=== PATIENT | female | born 1960 | race African-American/Black ===

== ENCOUNTER 2017-04-16 03:30 | Emergency (ER) | payer BC ==
[~2017-04-16] VITALS: Ht 160 cm; Wt 128.0 kg
[2017-04-16 03:32] VITALS: BP 144/79; PULSE 92; RESP 20; TEMP 100.8; O2SAT 97
[2017-04-16] MEDS ORDERED: IBUPROFEN 600 MG TAB PO ONE (03:45)
--- NOTE | 2017-04-16 03:45 | PD ---
HPI Chief Complaint: Cold / Flu Symptoms Time Seen by Provider: 03:35 Travel History International Travel<30 days: No Contact w/Intl Traveler<30days: No Traveled to known affect area: No History of Present Illness HPI 56-year-old female presents for evaluation of cough, congestion, fevers. Symptoms started 2 days ago. The cough is productive with no sputum production. She reports that her is developing similar symptoms. She denies chest pain, nausea or vomiting, abdominal pain, diarrhea, dysuria, flank pain, rash, recent travel. She has no other complaints at this time. [facility] Past Medical History Medical History: Denies Significant Hx Diminished Hearing: No Immunizations Current: Yes Ectopic : Yes (X2) Social History Alcohol Use: No Tobacco Use: Yes Substance Use: No Allergies-Medications (Allergen,Severity, Reaction): Coded Allergies: No Known Allergies (Verified Adverse Reaction, Unknown, 04/16/17) Reported Meds & Prescriptions Reported Meds & Active Scripts Active Tessalon Perles (Benzonatate) 100 Mg Cap 200 Mg PO TID PRN Review of Systems Except as stated in HPI: all other systems reviewed are Neg Physical Exam Narrative GENERAL: Well-developed well-nourished female in no acute distress SKIN: Warm and dry. HEAD: Atraumatic. Normocephalic. EYES: Pupils equal and round. No scleral icterus. No injection or drainage. ENT: No nasal bleeding or discharge. Mucous membranes pink and moist. NECK: Trachea midline. No JVD. CARDIOVASCULAR: Regular rate and rhythm. No murmur appreciated. RESPIRATORY: No accessory muscle use. Clear to auscultation. Breath sounds equal bilaterally. GASTROINTESTINAL: Abdomen soft, non-tender, nondistended. Hepatic and splenic margins not palpable. MUSCULOSKELETAL: No obvious deformities. No clubbing. No cyanosis. No edema. NEUROLOGICAL: Awake and alert. No obvious cranial nerve deficits. Motor grossly within normal limits. Normal speech. PSYCHIATRIC: Appropriate mood and affect; insight and judgment normal. Data Data Last Documented VS Vital Signs Date Time Temp Pulse Resp B/P (MAP) Pulse Ox O2 Delivery O2 Flow Rate FiO2 04/16/17 04:39 99.7 04/16/17 03:32 92 20 97 Room Air Orders Orders Chest, Single Ap (04/16/17 ) Influenzae A/B Antigen (04/16/17 03:42) Ibuprofen (Motrin) (04/16/17 03:45) Ed Discharge Order (04/16/17 05:17) [facility] Medical Decision Making Medical Screen Exam Complete: Yes Emergency Medical Condition: Yes Medical Record Reviewed: Yes Differential Diagnosis Influenza, pneumonia, bronchitis, otitis media Narrative Course 56-year-old female with 2 days of low-grade fever, cough, congestion. She appears well. She does have a low-grade fever. Plan is for chest x-ray and influenza antigen. She was given ibuprofen. Chest x-ray Is negative. Ibuprofen helped with her symptoms. Surprisingly her Influenza antigen is negative as her symptoms are most consistent with influenza. I don't suspect a bacterial process. Recommended supportive care, fluids, antipyretics, cough suppressants. She is being discharged with Tessalon. Diagnosis Primary Impression: Upper respiratory infection Departure Forms: Tests/Procedures, Work Release Enter return to work date: Apr 19, 2017 Additional Instructions: Stay well-hydrated and well-nourished. Take Tylenol and Motrin for fever. Tessalon for cough. Follow up with primary care as needed and return for any emergent medical conditions. Med/Other Pt SpecificInfo: Prescription(s) given Scripts Benzonatate (Tessalon Perles) 100 Mg Cap 200 MG PO TID Y for COUGH, #30 CAP 0 Refills Prov: Tg Weathers MD 04/16/17 Disposition: 01 DISCHARGE HOME Condition: Stable Moy Arnold Apr 16, 2017 03:45
--- NOTE | 2017-04-16 04:04 | RADRPT ---
EXAM DATE/TIME: 04/16/2017 03:52 [place] COMPARISON: No previous studies available for comparison. INDICATIONS : Cough. MEDICAL HISTORY : None. SURGICAL HISTORY : None. ENCOUNTER: Initial ACUITY: 2 days PAIN SCORE: 7/10 LOCATION: Left chest FINDINGS: Single AP view of the chest. The lungs are clear. Cardiomediastinal silhouette within normal limits. No evidence of pleural effusion or pneumothorax. CONCLUSION: No acute cardiopulmonary disease identified. Cory Canada MD on April 16, 2017 at 4:02 Board Certified Radiologist. This report was verified electronically.
[2017-04-16 04:39] VITALS: TEMP 99.7
[2017-04-16] MEDS ORDERED: BENZ100 PO (05:19)
== END 2017-04-16 05:30 | disposition home or self-care (01) ==
LOC: NEPD 03:30
DX: J06.9 Acute upper respiratory infection, unspecified (principal); Z72.0 Tobacco use
CPT/HCPCS: 71010; 87804; 99283

== ENCOUNTER 2018-05-03 07:05 | Inpatient (IN) ==
[2018-05-03] MEDS ORDERED: Sod Chloride 0.9% Inj 1,000 ML IV.SIG ONE (08:35)
[2018-05-03] MEDS ORDERED: Morphine Sulfate Inj 8 MG/ML Vial IV.PUSH ONE (08:35)
[2018-05-03] MEDS ORDERED: Aluminum/Magnesium/Simethacone Susp 30 ML UDC PO ONE (08:35)
--- NOTE | 2018-05-03 08:44 | ED ---
HPI General Chief complaint: Abdominal Pain Stated complaint: abd pain Time Seen by Provider: 05/03/18 08:20 History of Present Illness HPI narrative: Patient 57-year-old female presents emergency department for evaluation of epigastric abdominal pain radiating down to her back. States pain is been going on for past couple months but got worse over the past 2-3 days. Associated with some nausea without vomiting no diarrhea no constipation no dysuria. Worsened with spicy or fatty foods. Her only surgery in the past is an ectopic . States the pain has become severe, location as above, contacts above, associated signs symptoms as above. Related Data Home Medications Medication Instructions Recorded Confirmed No Known Home Medications 05/03/18 05/03/18 Allergies Allergy/AdvReac Type Severity Reaction Status Date / Time No Known Allergies Allergy Verified 05/03/18 07:10 Review of Systems ROS: all other systems reviewed are negative ON LICENSE OF [facility] Medical History Medical History History of ectopic (Acute) Patient denies medical problems (Acute) Surgical History Surgical History No history of previous surgery (Acute) Family History Family History Other Diabetes mellitus Social History Social History Substance History: No History of Abuse Second Hand Smoke Exposure: Yes Smoking Status: Current every day smoker Tobacco Type: Cigarettes How Often Do You Have a Drink Containing Alcohol: Never Recent Travel in [facility] within the Last 8 Weeks: No Recent Out of Country Travel within the Last 8 Weeks: No Immunization History Tetanus Immunization: Unsure Exam Narrative Exam Narrative: GENERAL: Well-developed well-nourished appears mildly uncomfortable. Obese. SKIN: Focused skin assessment warm/dry. HEAD: Atraumatic. Normocephalic. EYES: Pupils equal and round. No scleral icterus. No injection or drainage. ENT: No nasal bleeding or discharge. Mucous membranes pink and moist. NECK: Trachea midline. No JVD. CARDIOVASCULAR: Regular rate and rhythm. No murmur appreciated. RESPIRATORY: No accessory muscle use. Clear to auscultation. Breath sounds equal bilaterally. GASTROINTESTINAL: Abdomen soft, moderately tender in the epigastric region. Dewey sign negative. Psoas and obturator signs negative, no CVA tenderness per , nondistended. Hepatic and splenic margins not palpable. MUSCULOSKELETAL: No obvious deformities. No clubbing. No cyanosis. No edema. NEUROLOGICAL: Awake and alert. No obvious cranial nerve deficits. Motor grossly within normal limits. Normal speech. PSYCHIATRIC: Appropriate mood and affect; insight and judgment normal. Course Initial Documented Vital Signs Temperature 98.1 F 05/03/18 07:08 Pulse Rate 72 05/03/18 07:08 Respiratory Rate 20 05/03/18 07:08 Blood Pressure 156/92 H 05/03/18 07:08 Pulse Oximetry 99 05/03/18 07:08 Last Documented Vital Signs Temperature 98.1 F 05/03/18 07:08 Pulse Rate 74 05/03/18 12:06 Respiratory Rate 5 L 05/03/18 12:05 Blood Pressure 154/70 H 05/03/18 12:06 Pulse Oximetry 99 05/03/18 08:28 Medical Decision Making MDM Narrative Medical decision making narrative: Patient room in the emerge department, leading differential diagnosis considerations would be for cholecystitis or pancreatitis. Patient's lipase is minimally elevated 500, CT scan of the abdomen does not show acute cholecystitis but does show some inflammation of the pancreas. Patient does have multiple gallstones no obvious dilation of the biliary ductal system but concern would certainly be for biliary pancreatitis. Patient feeling better after morphine, discussed results with her as well as with hospitalist service for admission. Medical Screen Exam Complete: Yes Emergency Medical Condition: Yes Lab Data Result diagrams: 05/03/18 08:45 05/03/18 08:45 Lab Results 05/03/18 05/03/18 05/03/18 Range/Units 08:22 08:45 08:45 WBC 9.1 (4.0-11.0) th/mm3 RBC 4.41 (4.00-5.30) mil/mm3 Hgb 13.7 (11.6-15.3) gm/dL Hct 41.0 (35.0-46.0) % MCV 92.9 (80.0-100.0) fL MCH 31.1 (27.0-34.0) pg MCHC 33.4 (32.0-36.0) % RDW 13.5 (11.6-17.2) % Plt Count 179 (150-450) th/mm3 MPV 10.0 (7.0-11.0) fL Neut % (Auto) 52.4 (16.0-70.0) % Lymph % (Auto) 34.8 (9.0-44.0) % Archer % (Auto) 9.9 H (0.0-8.0) % Eos % (Auto) 1.9 (0.0-4.0) % Baso % (Auto) 1.0 (0.0-2.0) % Neut # (Auto) 4.8 (1.8-7.7) th/mm3 Lymph # (Auto) 3.2 (1.0-4.8) th/mm3 Archer # (Auto) 0.9 (0.0-0.9) th/mm3 Eos # (Auto) 0.2 (0.0-0.4) th/mm3 Baso # (Auto) 0.1 (0.0-0.2) th/mm3 WBC Differential . Differential Comment Auto diff final Sodium 136 (136-145) meq/L Potassium 4.1 (3.5-5.1) meq/L Chloride 104 (98-107) meq/L Carbon Dioxide 24.1 (21.0-32.0) meq/L Anion Gap 8 (5-15) meq/L BUN 10 (7-18) mg/dL Creatinine 0.68 (0.50-1.00) mg/dL Estimated GFR Greater than 89 (>89) mL/min Random Glucose 117 H (74-106) mg/dL Calcium 10.2 H (8.5-10.1) mg/dL Magnesium 2.1 (1.5-2.5) mg/dL Total Bilirubin 0.2 (0.2-1.0) mg/dL AST 19 (15-37) U/L ALT 23 (10-53) U/L Alkaline Phosphatase 99 (45-117) U/L Troponin I Less than 0.02 L (0.02-0.05) ng/mL Total Protein 8.3 H (6.4-8.2) g/dL Albumin 3.9 (3.4-5.0) g/dL Lipase 581 H (73-393) U/L Urine Color Yellow (Yellw/Straw) Urine Clarity Hazy H (Clear) Urine pH 5.0 (5.0-8.5) Ur Specific [place] 1.026 (1.002-1.035) Urine Protein Negative (Neg-Trace) mg/dL Urine Glucose (UA) Negative (Negative) mg/dL Urine Ketones Trace H (Negative) mg/dL Urine Occult Blood Negative (Negative) Urine Nitrate Negative (Negative) Urine Bilirubin Negative (Negative) Urine Urobilinogen 2.0 H (Less than 2) mg/dL Ur Leukocyte Esterase Negative (Negative) Urine RBC Less than 1 (0-3) /hpf Urine WBC 4 (0-5) /hpf Ur Squamous Epith Cells 4 (0-5) /hpf Calcium Oxalate Crystal Moderate H (None) /hpf Urine Bacteria Occasional H (None) /hpf Urine Mucus Few H (Occasional) /lpf Micro UA Comment Culture not ind Ur Microscopic Review Not Reportable Urine Culture Comments Culture not ind 05/03/18 Range/Units 08:45 WBC (4.0-11.0) th/mm3 RBC (4.00-5.30) mil/mm3 Hgb (11.6-15.3) gm/dL Hct (35.0-46.0) % MCV (80.0-100.0) fL MCH (27.0-34.0) pg MCHC (32.0-36.0) % RDW (11.6-17.2) % Plt Count (150-450) th/mm3 MPV (7.0-11.0) fL Neut % (Auto) (16.0-70.0) % Lymph % (Auto) (9.0-44.0) % Archer % (Auto) (0.0-8.0) % Eos % (Auto) (0.0-4.0) % Baso % (Auto) (0.0-2.0) % Neut # (Auto) (1.8-7.7) th/mm3 Lymph # (Auto) (1.0-4.8) th/mm3 Archer # (Auto) (0.0-0.9) th/mm3 Eos # (Auto) (0.0-0.4) th/mm3 Baso # (Auto) (0.0-0.2) th/mm3 WBC Differential Differential Comment Sodium (136-145) meq/L Potassium (3.5-5.1) meq/L Chloride (98-107) meq/L Carbon Dioxide (21.0-32.0) meq/L Anion Gap (5-15) meq/L BUN (7-18) mg/dL Creatinine (0.50-1.00) mg/dL Estimated GFR (>89) mL/min Random Glucose (74-106) mg/dL Calcium (8.5-10.1) mg/dL Magnesium (1.5-2.5) mg/dL Total Bilirubin (0.2-1.0) mg/dL AST (15-37) U/L ALT (10-53) U/L Alkaline Phosphatase (45-117) U/L Troponin I Cancelled (0.02-0.05) ng/mL Total Protein (6.4-8.2) g/dL Albumin (3.4-5.0) g/dL Lipase (73-393) U/L Urine Color (Yellw/Straw) Urine Clarity (Clear) Urine pH (5.0-8.5) Ur Specific [place] (1.002-1.035) Urine Protein (Neg-Trace) mg/dL Urine Glucose (UA) (Negative) mg/dL Urine Ketones (Negative) mg/dL Urine Occult Blood (Negative) Urine Nitrate (Negative) Urine Bilirubin (Negative) Urine Urobilinogen (Less than 2) mg/dL Ur Leukocyte Esterase (Negative) Urine RBC (0-3) /hpf Urine WBC (0-5) /hpf Ur Squamous Epith Cells (0-5) /hpf Calcium Oxalate Crystal (None) /hpf Urine Bacteria (None) /hpf Urine Mucus (Occasional) /lpf Micro UA Comment Ur Microscopic Review Urine Culture Comments Imaging Data Radiologist's impression: Abdomen/Pelvis CT 05/03/18 08:35 CONCLUSION: 1. There is the suggestion of minimal stranding along the pancreatic head which can be seen with pancreatitis in the right clinical setting. Correlation with amylase/lipase levels. 2. Diverticulosis without diverticulitis. 3. Multiple gallstones and possible calcification gallbladder wall. 4. Multiple uterine masses most consistent with leiomyomas. Discharge Plan Discharge Disposition Patient Disposition: ED Admit(ED Internal Use Only) Discharge Condition Condition: Stable Discharge Order Discharge Orders: ED Use Only Admit Order (Routine); Ordered 05/03/18 Ordered By: Александр Sexton Discharge Details Diagnosis: Acute pancreatitis Physicians Team ED Provider: Александр Sexton Primary Care Provider: UNKNOWN, Attending Provider: Mer Marroquin Other Providers: Migue Madsen,Aaron Discharge Interventions Interventions: Vital Signs Last Done: 05/03/18 08:28 Status ED Status: Admitted Patient
[2018-05-03 09:03] LABS: Baso # (Auto) 0.1 th/mm3 (0.0-0.2); Eos # (Auto) 0.2 th/mm3 (0.0-0.4); Eos % (Auto) 1.9 % (0.0-4.0); Hemoglobin 13.7 gm/dL (11.6-15.3); Lymph # (Auto) 3.2 th/mm3 (1.0-4.8); Lymph % (Auto) 34.8 % (9.0-44.0); Mean Corpuscular HGB Conc 33.4 % (32.0-36.0); Mean Corpuscular Hemoglobin 31.1 pg (27.0-34.0); Mean Corpuscular Volume 92.9 fL (80.0-100.0); Mono # (Auto) 0.9 th/mm3 (0.0-0.9); Mono % (Auto) 9.9 % (0.0-8.0); Neut # (Auto) 4.8 th/mm3 (1.8-7.7); Neut % (Auto) 52.4 % (16.0-70.0); Platelet Count 179 th/mm3 (150-450); Red Blood Count 4.41 mil/mm3 (4.00-5.30); Red Cell Distribution Width 13.5 % (11.6-17.2); White Blood Count 9.1 th/mm3 (4.0-11.0)
[2018-05-03 09:03] LABS: Bacteria,Urine Occasional /hpf; Bilirubin,Urine Negative (Negative); Calcium Oxalate Crystals,Urine Moderate /hpf; Clarity,Urine Hazy (Clear); Color,Urine Yellow (Yellw/Straw); Glucose,Urine (UA) Negative (Negative); Leukocyte Esterase,Urine Negative (Negative); Mucus,Urine Few /lpf (Occasional); Nitrite,Urine Negative (Negative); Specific Gravity,Urine 1.026 (1.002-1.035); Squamous Epithelial Cell,Urine 4 /hpf (0-5)
[2018-05-03 09:12] LABS: Alanine Aminotransferase 23 U/L (10-53)
[2018-05-03 09:13] LABS: Albumin 3.9 g/dL (3.4-5.0); Anion Gap 8 meq/L (5-15); Aspartate Aminotransferase 19 U/L (15-37); Blood Urea Nitrogen 10 mg/dL (7-18); Calcium 10.2 mg/dL (8.5-10.1); Carbon Dioxide 24.1 meq/L (21.0-32.0); Chloride 104 meq/L (98-107); Glomerular Filtration Rate Greater Than 89 mL/min (>89); Glucose,Random 117 mg/dL (74-106); Lipase 581 U/L (73-393); Magnesium 2.1 mg/dL (1.5-2.5); Potassium 4.1 meq/L (3.5-5.1); Sodium 136 meq/L (136-145)
[2018-05-03 09:16] LABS: Alkaline Phosphatase 99 U/L (45-117); Total Protein 8.3 g/dL (6.4-8.2)
--- NOTE | 2018-05-03 09:34 | CT ---
EXAM DATE: 05/03/2018 9:15 AM EST AGE/SEX: 57 years / Female INDICATIONS: Abdomen pain for two days. Nausea. CLINICAL DATA: This is the patient's initial encounter. Patient reports that signs and symptoms have been present for 2 days and indicates a pain score of 10/10. MEDICAL/SURGICAL HISTORY: . Ectopic . None. ORAL CONTRAST: No oral contrast ingested. RADIATION DOSE: 16.37 CTDI (mGy) COMPARISON: No prior exams available for comparison. TECHNIQUE: Multiple contiguous axial images were obtained through the abdomen and pelvis following b olus infusion of 96 ml Omnipaque 350 (iohexol) nonionic water-soluble contrast as a single exam dos e. No oral contrast ingested. Using automated exposure control and adjustment of the mA and/or kV ac cording to patient size, radiation dose was kept as low as reasonably achievable to obtain optimal di agnostic quality images. DICOM format image data is available electronically for review and comparis on. FINDINGS: Lower Lungs: The visualized lower lungs are clear. Liver: The liver has a homogeneous density without space-occupying lesion. There is no dilation of th e biliary tree. Multiple gallstones with possible calcification of the gallbladder wall. Spleen: Homogeneous density without enlargement. Pancreas: Suggestion of minimal stranding along the pancreatic head. No fluid collections or abscess .. Kidneys: Normal in size and shape. No evidence of mass or hydronephrosis. Adrenal Glands: Unremarkable. Aorta: Mild atherosclerotic changes without aneurysmal dilation. Bowel/Mesentery: Diverticulosis without diverticulitis. Normal appendix. Abdominal Wall: Intact. Retroperitoneum: No evidence of adenopathy in the retrocrural, para-aortic, or deep pelvic regions. Bladder: Contours are smooth. Reproductive Organs: No abnormal masses or calcifications seen. Multiple uterine masses, which are c alcified. Inguinal: The inguinal region is unremarkable without evidence of adenopathy. Bony Structures: Unremarkable. CONCLUSION: 1. There is the suggestion of minimal stranding along the pancreatic head which can be seen with morejon creatitis in the right clinical setting. Correlation with amylase/lipase levels. 2. Diverticulosis without diverticulitis. 3. Multiple gallstones and possible calcification gallbladder wall. 4. Multiple uterine masses most consistent with leiomyomas. Electronically signed by: Amish Lama MD Board Certified Radiologist 05/03/2018 9:33 AM EST
--- NOTE | 2018-05-03 12:02 | P.HPIM ---
History of Present Illness Service: This is a 57-year-old female patient with a medical history significant for gallstones who presents to the ER for epigastric abdominal pain. The patient has had this pain for 2-3 months but states that over the past 2 days it is significantly worsened. She had some nausea but denies any vomiting. Only surgical history is significant for an ectopic several years ago. CT of abdomen shows some stranding along the pancreatic head, suggestive of pancreatitis. Diverticulosis without diverticulitis is noted. Multiple gallstones and possible calcified gallbladder wall. Multiple uterine masses consistent with fibroids were also present. She denies travel, change in diet, change in bowl habits, or any alcohol or drug consumption. Primary Care Physician: UNKNOWN Review of Systems Constitutional: Reports anorexia, Denies chills, Denies fever(s) Eyes: Denies change in vision, Denies double vision, Denies loss of vision Ears, Nose, Mouth, and Throat: Denies abnormal hearing, Denies hearing loss, Denies poor balance Cardiovascular: Denies chest pain, Denies fast heart rate, Denies irregular heart rhythm, Denies lightheadedness Respiratory: Denies chest congestion, Denies cough Gastrointestinal: Reports abdominal pain, Reports bloating, Reports nausea, Denies black, tarry stools, Denies bright, red blood in stools, Denies change in bowel habits, Denies change in stools, Denies vomiting, Denies vomiting blood Genitourinary: Denies abnormal vaginal bleeding Musculoskeletal: Denies abnormal walking, Denies limited joint movement Skin/Breast: Denies lesions, Denies redness Neurologic: Denies abnormal hearing, Denies weakness Psychiatric: Denies abnormal sleep pattern, Denies behavioral changes [facility] - History History Provided By: Patient - Medical History Medical History: Medical History (Last Reviewed 05/03/18 @ 07:09 by Elizabeth Davenport) History of ectopic Patient denies medical problems - Surgical History Surgical History: Surgical History (Last Updated 05/03/18 @ 08:31 by Janay Gilbert) No history of previous surgery - Social History I have reviewed the patient's Social History: Yes - Tobacco History Second Hand Smoke Exposure: Yes Tobacco Use In Past 30 Days: Yes Smoking Status: Current every day smoker Tobacco Type: Cigarettes - Alcohol History How Often Do You Have a Drink Containing Alcohol: Never - Substance Use History Substance History: No History of Abuse - Travel History Recent Travel in the [place] Within the Last 8 Weeks: No Recent Travel Out of the Country Within the Last 8 Weeks: No - Immunization History Tetanus Immunization: Unsure Medications and Allergies Active Medications: Active Medications Sodium Chloride (Ns Flush) 2 ml IV.FLUSH PRN PRN PRN Reason: FLUSH AFTER USING IV ACCESS Allergies Allergy/AdvReac Type Severity Reaction Status Date / Time No Known Allergies Allergy Verified 05/03/18 07:10 Home Medications Medication Instructions Recorded Confirmed Type No Known Home Medications 05/03/18 05/03/18 History Exam Vital signs: Vital Signs 05/03/18 07:08 05/03/18 08:28 Temperature 98.1 F Pulse Rate 72 66 Respiratory Rate 20 18 Blood Pressure 156/92 H 172/81 H Pulse Oximetry 99 99 Intake & Output 05/02/18 05/03/18 05/03/18 18:59 06:59 18:59 Intake Total 1000 / 1000 Balance 1000 / 1000 Weight 90.718 kg Intake: IV 1000 / 1000 NS Inj 1,000 ML @ Wide Open IV. 1000 / 1000 SIG BOLUS ONE Rx#:[id number] Narrative: GENERAL: Well-appearing, no acute distress SKIN: Warm and dry. HEAD: Normocephalic. EYES: No scleral icterus. No injection or drainage. NECK: Supple, trachea midline. No JVD or lymphadenopathy. CARDIOVASCULAR: Regular rate and rhythm without murmurs, gallops, or rubs. RESPIRATORY: Breath sounds equal bilaterally. No accessory muscle use. GASTROINTESTINAL: Abdomen soft, +BS, +generalized abdominal pain, +RUQ tenderness with palpation, no guarding or rebound MUSCULOSKELETAL: No cyanosis, or edema. Results - Labs CBC & Chem 7: 05/03/18 08:45 05/03/18 08:45 Labs: Short CBC 05/03/18 Range/Units 08:45 WBC 9.1 (4.0-11.0) th/mm3 Hgb 13.7 (11.6-15.3) gm/dL Hct 41.0 (35.0-46.0) % Plt Count 179 (150-450) th/mm3 BMP 05/03/18 08:45 Sodium 136 Potassium 4.1 Chloride 104 Carbon Dioxide 24.1 BUN 10 Creatinine 0.68 Calcium 10.2 H Cardiac Enzymes 05/03/18 05/03/18 Range/Units 08:45 08:45 Troponin I Less than 0.02 L Cancelled (0.02-0.05) ng/mL Liver Function 05/03/18 Range/Units 08:45 Total Bilirubin 0.2 (0.2-1.0) mg/dL AST 19 (15-37) U/L ALT 23 (10-53) U/L Alkaline Phosphatase 99 (45-117) U/L Albumin 3.9 (3.4-5.0) g/dL Urine 05/03/18 Range/Units 08:22 Urine Color Yellow (Yellw/Straw) Urine Clarity Hazy H (Clear) Urine pH 5.0 (5.0-8.5) Ur Specific [place] 1.026 (1.002-1.035) Urine Protein Negative (Neg-Trace) mg/dL Urine Glucose (UA) Negative (Negative) mg/dL - Imaging Impressions Abdomen/Pelvis CT 05/03/18 08:35 CONCLUSION: 1. There is the suggestion of minimal stranding along the pancreatic head which can be seen with pancreatitis in the right clinical setting. Correlation with amylase/lipase levels. 2. Diverticulosis without diverticulitis. 3. Multiple gallstones and possible calcification gallbladder wall. 4. Multiple uterine masses most consistent with leiomyomas. Caprini VTE Risk Assessment Caprini VTE Risk Assessment: No/Low Risk (score <= 1) Caprini Risk Assessment Model: Point Value = 1 Point Value = 2 Point Value = 3 Point Value = 5 Age 41-60 Minor surgery BMI > 25 kg/m2 Swollen legs Varicose veins or History of unexplained or recurrent spontaneous Oral contraceptives or hormone replacement Sepsis (< 1 month) Serious lung disease, including pneumonia (< 1 month) Abnormal pulmonary function Acute myocardial infarction Congestive heart failure (< 1 month) History of inflammatory bowel disease Medical patient at bed rest Age 61-74 Arthroscopic surgery Major open surgery (> 45 min) Laparoscopic surgery (> 45 min) Malignancy Confined to bed (> 72 hours) Immobilizing plaster cast Central venous access Age >= 75 History of VTE Family history of VTE Factor V Leiden Prothrombin [id number] Lupus anticoagulant Anticardiolipin antibodies Elevated serum homocysteine Heparin-induced thrombocytopenia Other congenital or acquired thrombophilia Stroke (< 1 month) Elective arthroplasty Hip, pelvis, or leg fracture Acute spinal cord injury (< 1 month) Prophylaxis Regimen: Total Risk Factor Score Risk Level Prophylaxis Regimen 0-1 Low Early ambulation 2 Moderate Order ONE of the following: *Sequential Compression Device (SCD) *Heparin 5000 units SQ BID 3-4 Higher Order ONE of the following medications: *Heparin 5000 units SQ TID *Enoxaparin/Lovenox 40 mg SQ daily (WT < 150 kg, CrCl > 30 mL/min) *Enoxaparin/Lovenox 30 mg SQ daily (WT < 150 kg, CrCl > 10-29 mL/min) *Enoxaparin/Lovenox 30 mg SQ BID (WT < 150 kg, CrCl > 30 mL/min) AND/OR *Sequential Compression Device (SCD) 5 or more Highest Order ONE of the following medications: *Heparin 5000 units SQ TID (Preferred with Epidurals) *Enoxaparin/Lovenox 40 mg SQ daily (WT < 150 kg, CrCl > 30 mL/min) *Enoxaparin/Lovenox 30 mg SQ daily (WT < 150 kg, CrCl > 10-29 mL/min) *Enoxaparin/Lovenox 30 mg SQ BID (WT < 150 kg, CrCl > 30 mL/min) AND *Sequential Compression Device (SCD) Assessment and Plan - Plan This is a 57-year-old female patient with a history of gallstones who presents with abdominal pain. Based on history, physical, and CT scan working diagnosis is gallstone pancreatitis. Gallstone pancreatitis - See above CT - lipase 581 - N.p.o. - IVF - GI & General Surgery consulted - pain management with morphine - bilat SCDs - am labs further reccs pending GS and GI Code Status: Full Discussed Condition With: Dr. Gutierrez ER physician
--- NOTE | 2018-05-03 13:07 | P.CONGI ---
History of Present Illness Consult date: 05/03/18 Consult reason: Pancreatitis Chief complaint: Pancreatitis, likely gallstone related History of Present Illness: This is a 57-year-old female with no significant past medical history who presented to the emergency department earlier today for evaluation of abdominal pain. Patient states that she has been having this abdominal pain for the past couple days, states it initially was intermittent but is since become more constant. The pain is located in her upper mid abdomen. Denies any radiation of the pain. States the pain is worse after meals. Reports associated nausea but denies any emesis. Denies any changes in bowel habits. CT scan of her abdomen and pelvis in the emergency department concerning for acute pancreatitis. Patient denies any history of pancreatitis. She denies any new medications. She denies any alcohol use. She denies any abdominal trauma. She has known history of gallstones but has not undergone cholecystectomy. Patient denies family history of pancreatic issues including cancer. She denies any known hyperlipidemia. <Kaylah Cordon - Last Filed: 05/03/18 13:01> Review of Systems Constitutional: Denies chills, Denies fever(s), Denies weight loss Gastrointestinal: Reports abdominal pain, Reports nausea, Denies change in bowel habits, Denies vomiting <Kaylah Cordon - Last Filed: 05/03/18 13:01> PMFSH - History History Provided By: Patient - Medical History Medical History: Medical History (Last Reviewed 05/03/18 @ 07:09 by Elizabeth Davenport) History of ectopic Patient denies medical problems - Surgical History Surgical History: Surgical History (Last Updated 05/03/18 @ 08:31 by Janay Gilbert) No history of previous surgery - Family History Family History: Family History (Last Updated 05/03/18 @ 12:22 by Mer Marroquin MD) Other Diabetes mellitus - Tobacco History Second Hand Smoke Exposure: Yes Tobacco Use In Past 30 Days: Yes Smoking Status: Current every day smoker Tobacco Type: Cigarettes - Alcohol History How Often Do You Have a Drink Containing Alcohol: Never - Substance Use History Substance History: No History of Abuse - Travel History Recent Travel in the [place] Within the Last 8 Weeks: No Recent Travel Out of the Country Within the Last 8 Weeks: No - Immunization History Tetanus Immunization: Unsure <Kaylah Cordon - Last Filed: 05/03/18 13:01> - Medical History Medical History: Medical History (Last Reviewed 05/03/18 @ 07:09 by Elizabeth Davenport) History of ectopic Patient denies medical problems - Surgical History Surgical History: Surgical History (Last Updated 05/03/18 @ 08:31 by Janay Gilbert) No history of previous surgery - Family History Family History: Family History (Last Updated 05/03/18 @ 12:22 by Mer Marroquin MD) Other Diabetes mellitus <Migue Madsen - Last Filed: 05/03/18 17:40> Medications and Allergies Active Medications: Active Medications Sodium Chloride (Ns Inj) 1,000 mls @ 84 mls/hr IV.CONT .[id number] YADIEL Morphine Sulfate (Morphine Inj) 4 mg IV.PUSH Q4H PRN PRN Reason: ABDOMINAL PAIN 1-10 Sodium Chloride (Ns Flush) 2 ml IV.FLUSH PRN PRN PRN Reason: FLUSH AFTER USING IV ACCESS Sodium Chloride (Ns Flush) 2 ml IV.FLUSH BID YADIEL Sodium Chloride (Ns Flush) 2 ml IV.FLUSH PRN PRN PRN Reason: FLUSH AFTER USING IV ACCESS <Kaylah Cordon - Last Filed: 05/03/18 13:01> Active Medications: Active Medications Sodium Chloride (Ns Inj) 1,000 mls @ 84 mls/hr IV.CONT .[id number] YADIEL Last Admin: 05/03/18 13:16 Dose: 84 mls/hr Morphine Sulfate (Morphine Inj) 4 mg IV.PUSH Q4H PRN PRN Reason: ABDOMINAL PAIN 1-10 Last Admin: 05/03/18 13:35 Dose: 4 mg Sodium Chloride (Ns Flush) 2 ml IV.FLUSH PRN PRN PRN Reason: FLUSH AFTER USING IV ACCESS Sodium Chloride (Ns Flush) 2 ml IV.FLUSH BID YADIEL Sodium Chloride (Ns Flush) 2 ml IV.FLUSH PRN PRN PRN Reason: FLUSH AFTER USING IV ACCESS <Migue Madsen - Last Filed: 05/03/18 17:40> Allergies Allergy/AdvReac Type Severity Reaction Status Date / Time No Known Allergies Allergy Verified 05/03/18 07:10 Home Medications Medication Instructions Recorded Confirmed Type No Known Home Medications 05/03/18 05/03/18 History Exam Vital signs: Vital Signs 05/03/18 07:08 05/03/18 08:28 05/03/18 12:05 Temperature 98.1 F Pulse Rate 72 66 Respiratory Rate 20 18 5 L Blood Pressure 156/92 H 172/81 H Pulse Oximetry 99 99 05/03/18 12:06 Temperature Pulse Rate 74 Respiratory Rate Blood Pressure 154/70 H Pulse Oximetry Intake & Output 05/02/18 05/03/18 05/03/18 18:59 06:59 18:59 Intake Total 1000 / 1000 Balance 1000 / 1000 Weight 90.718 kg Intake: IV 1000 / 1000 NS Inj 1,000 ML @ Wide Open IV. 1000 / 1000 SIG BOLUS ONE Rx#:[id number] - Constitutional no acute distress - Routine HEENT Exam Head: Present: normocephalic, atraumatic - Routine Respiratory Exam Absent: accessory muscle use - Routine Cardiovascular Exam Present: RRR - Routine Abdominal Exam Present: soft, normoactive bowel sounds, tenderness (mid upper abdominal tenderness). Absent: distended - Routine Skin Exam Present: dry, warm - Routine Neurological Exam Present: alert, oriented X3 <Kaylah Cordon - Last Filed: 05/03/18 13:01> Vital signs: Vital Signs 05/03/18 07:08 05/03/18 08:28 05/03/18 12:05 Temperature 98.1 F Pulse Rate 72 66 Respiratory Rate 20 18 5 L Blood Pressure 156/92 H 172/81 H Pulse Oximetry 99 99 05/03/18 12:06 05/03/18 14:45 Temperature 98.4 F Pulse Rate 74 63 Respiratory Rate 20 Blood Pressure 154/70 H 166/75 H Pulse Oximetry 97 Intake & Output 05/02/18 05/03/18 05/03/18 18:59 06:59 18:59 Intake Total 1000 / 1000 Balance 1000 / 1000 Weight 101.9 kg Intake: IV 1000 / 1000 NS Inj 1,000 ML @ Wide Open IV. 1000 / 1000 SIG BOLUS ONE Rx#:[id number] Other: # Voids 1 Date of Last Bowel Movement 05/03/18 Weight On Admission 101.9 kg <Migue Madsen - Last Filed: 05/03/18 17:40> Results - Labs CBC & Chem 7: 05/03/18 08:45 05/03/18 08:45 Labs: Laboratory Results - last 24 hr 05/03/18 05/03/18 05/03/18 08:22 08:45 08:45 WBC 9.1 RBC 4.41 Hgb 13.7 Hct 41.0 MCV 92.9 MCH 31.1 MCHC 33.4 RDW 13.5 Plt Count 179 MPV 10.0 Neut % (Auto) 52.4 Lymph % (Auto) 34.8 [place] % (Auto) 9.9 H Eos % (Auto) 1.9 Baso % (Auto) 1.0 Neut # (Auto) 4.8 Lymph # (Auto) 3.2 [place] # (Auto) 0.9 Eos # (Auto) 0.2 Baso # (Auto) 0.1 WBC Differential . Differential Comment Auto diff final Sodium 136 Potassium 4.1 Chloride 104 Carbon Dioxide 24.1 Anion Gap 8 BUN 10 Creatinine 0.68 Estimated GFR Greater than 89 Random Glucose 117 H Calcium 10.2 H Magnesium 2.1 Total Bilirubin 0.2 AST 19 ALT 23 Alkaline Phosphatase 99 Troponin I Less than 0.02 L Total Protein 8.3 H Albumin 3.9 Lipase 581 H Urine Color Yellow Urine Clarity Hazy H Urine pH 5.0 Ur Specific [place] 1.026 Urine Protein Negative Urine Glucose (UA) Negative Urine Ketones Trace H Urine Occult Blood Negative Urine Nitrate Negative Urine Bilirubin Negative Urine Urobilinogen 2.0 H Ur Leukocyte Esterase Negative Urine RBC Less than 1 Urine WBC 4 Ur Squamous Epith Cells 4 Calcium Oxalate Crystal Moderate H Urine Bacteria Occasional H Urine Mucus Few H Micro UA Comment Culture not ind Ur Microscopic Review Not Reportable Urine Culture Comments Culture not ind 05/03/18 08:45 WBC RBC Hgb Hct MCV MCH MCHC RDW Plt Count MPV Neut % (Auto) Lymph % (Auto) [place] % (Auto) Eos % (Auto) Baso % (Auto) Neut # (Auto) Lymph # (Auto) [place] # (Auto) Eos # (Auto) Baso # (Auto) WBC Differential Differential Comment Sodium Potassium Chloride Carbon Dioxide Anion Gap BUN Creatinine Estimated GFR Random Glucose Calcium Magnesium Total Bilirubin AST ALT Alkaline Phosphatase Troponin I Cancelled Total Protein Albumin Lipase Urine Color Urine Clarity Urine pH Ur Specific [place] Urine Protein Urine Glucose (UA) Urine Ketones Urine Occult Blood Urine Nitrate Urine Bilirubin Urine Urobilinogen Ur Leukocyte Esterase Urine RBC Urine WBC Ur Squamous Epith Cells Calcium Oxalate Crystal Urine Bacteria Urine Mucus Micro UA Comment Ur Microscopic Review Urine Culture Comments - Imaging Impressions Abdomen/Pelvis CT 05/03/18 08:35 CONCLUSION: 1. There is the suggestion of minimal stranding along the pancreatic head which can be seen with pancreatitis in the right clinical setting. Correlation with amylase/lipase levels. 2. Diverticulosis without diverticulitis. 3. Multiple gallstones and possible calcification gallbladder wall. 4. Multiple uterine masses most consistent with leiomyomas. <Kaylah Cordon - Last Filed: 05/03/18 13:01> - Labs CBC & Chem 7: 05/03/18 08:45 05/03/18 08:45 Labs: Laboratory Results - last 24 hr 05/03/18 05/03/18 05/03/18 08:22 08:45 08:45 WBC 9.1 RBC 4.41 Hgb 13.7 Hct 41.0 MCV 92.9 MCH 31.1 MCHC 33.4 RDW 13.5 Plt Count 179 MPV 10.0 Neut % (Auto) 52.4 Lymph % (Auto) 34.8 [place] % (Auto) 9.9 H Eos % (Auto) 1.9 Baso % (Auto) 1.0 Neut # (Auto) 4.8 Lymph # (Auto) 3.2 [place] # (Auto) 0.9 Eos # (Auto) 0.2 Baso # (Auto) 0.1 WBC Differential . Differential Comment Auto diff final Sodium 136 Potassium 4.1 Chloride 104 Carbon Dioxide 24.1 Anion Gap 8 BUN 10 Creatinine 0.68 Estimated GFR Greater than 89 Random Glucose 117 H Calcium 10.2 H Magnesium 2.1 Total Bilirubin 0.2 AST 19 ALT 23 Alkaline Phosphatase 99 Troponin I Less than 0.02 L Total Protein 8.3 H Albumin 3.9 Triglycerides Cholesterol LDL Cholesterol, Calc HDL Cholesterol Cholesterol/HDL Ratio Lipase 581 H Urine Color Yellow Urine Clarity Hazy H Urine pH 5.0 Ur Specific [place] 1.026 Urine Protein Negative Urine Glucose (UA) Negative Urine Ketones Trace H Urine Occult Blood Negative Urine Nitrate Negative Urine Bilirubin Negative Urine Urobilinogen 2.0 H Ur Leukocyte Esterase Negative Urine RBC Less than 1 Urine WBC 4 Ur Squamous Epith Cells 4 Calcium Oxalate Crystal Moderate H Urine Bacteria Occasional H Urine Mucus Few H Micro UA Comment Culture not ind Ur Microscopic Review Not Reportable Urine Culture Comments Culture not ind 05/03/18 05/03/18 08:45 08:45 WBC RBC Hgb Hct MCV MCH MCHC RDW Plt Count MPV Neut % (Auto) Lymph % (Auto) [place] % (Auto) Eos % (Auto) Baso % (Auto) Neut # (Auto) Lymph # (Auto) [place] # (Auto) Eos # (Auto) Baso # (Auto) WBC Differential Differential Comment Sodium Potassium Chloride Carbon Dioxide Anion Gap BUN Creatinine Estimated GFR Random Glucose Calcium Magnesium Total Bilirubin AST ALT Alkaline Phosphatase Troponin I Cancelled Total Protein Albumin Triglycerides 194 H Cholesterol 243 H LDL Cholesterol, Calc 179 H HDL Cholesterol 25.7 L Cholesterol/HDL Ratio 9.45 Lipase Urine Color Urine Clarity Urine pH Ur Specific [place] Urine Protein Urine Glucose (UA) Urine Ketones Urine Occult Blood Urine Nitrate Urine Bilirubin Urine Urobilinogen Ur Leukocyte Esterase Urine RBC Urine WBC Ur Squamous Epith Cells Calcium Oxalate Crystal Urine Bacteria Urine Mucus Micro UA Comment Ur Microscopic Review Urine Culture Comments - Imaging Impressions Abdomen/Pelvis CT 05/03/18 08:35 CONCLUSION: 1. There is the suggestion of minimal stranding along the pancreatic head which can be seen with pancreatitis in the right clinical setting. Correlation with amylase/lipase levels. 2. Diverticulosis without diverticulitis. 3. Multiple gallstones and possible calcification gallbladder wall. 4. Multiple uterine masses most consistent with leiomyomas. <Migue Madsen - Last Filed: 05/03/18 17:40> Assessment and Plan - Plan Assessment Acute pancreatitispatient presents with 2-day history of abdominal pain, located in her upper mid abdomen, worse after meals. States that she did have some mild short-term improvement with Maalox. Associated nausea with no emesis. Bowel movements are regular. Denies any history of pancreatitis. Denies any alcohol use. Denies any hyperlipidemia. Denies any abdominal trauma. Denies any new medications. Denies any family history of pancreatic issues including cancer. Does have known history of gallstones but has never had a cholecystectomy. CT abdomen/pelvis with IV contrast (05/03/18) there is the suggestion of minimal stranding along the pancreatic head which can be seen with pancreatitis. Diverticulosis without diverticulitis. Multiple gallstones and possible calcification of the gallbladder wall. Multiple uterine masses most consistent with leiomyomas. [id number] LFTs not concerning for any signs of obstruction Plan Agree with surgical consult for possible cholecystectomy N.p.o. Analgesics Antiemetics IV fluids Monitor calcium Monitor electrolytes Replace per primary team Suspect pancreatitis is secondary to gallstones Further recommend patient's to follow This patient has been seen and examined by myself and Dr. Madsen and this note is written on his behalf <Kaylah Cordon - Last Filed: 05/03/18 13:01> - Attending Attestation Likely the stone already passed. Agree with plan as above. Thank you for the consult. <Migue Madsen - Last Filed: 05/03/18 17:40>
[2018-05-03] MEDS: Sod Chloride 0.9% Inj 1,000 ML IV.CONT SCH (13:16)
[2018-05-03] MEDS: Morphine Inj 4 MG/ML Vial IV.PUSH PRN (13:35)
[2018-05-03 14:00] LABS: Chol/HDL Ratio 9.45 Ratio; HDL Cholesterol 25.7 mg/dL (40.0-60.0)
--- NOTE | 2018-05-03 17:43 | MB ---
cc: Aaron Bermudez MD DATE: 05/03/2018 PERSON REQUESTING CONSULTATION: Mer Marroquin MD REASON FOR CONSULTATION: Gallstone pancreatitis. HISTORY OF PRESENT ILLNESS: The patient is a 57-year-old female who was admitted to [facility] with gallstone pancreatitis. The patient states she was in her normal state of health when she developed 48 hours of increasing epigastric abdominal pain that radiated to her back. The patient has no known history of previous pancreas problems, gallstones or gallstone pancreatitis. She states she may have been told earlier in her life that she has had a gallstone. She does not drink alcohol. She does not recall eating any food that is different than normal. The patient on evaluation of her pain, underwent CT scan which did show gallstones. Laboratory value did show elevated lipase at 581. General surgery was consulted for assistance in management. REVIEW OF SYSTEMS: A 12-point review of systems is conducted with the patient and is negative except for the pertinent positives mentioned above in history of present illness. PAST MEDICAL HISTORY: None. PAST SURGICAL HISTORY: Ectopic x 2. SOCIAL HISTORY: The patient is a current everyday smoker. She Denies alcohol or illicit drug use, with the exception of a rare social drink. FAMILY HISTORY: Reviewed, noncontributory. HOME MEDICATIONS: None. ALLERGIES: NO KNOWN DRUG ALLERGIES. PHYSICAL EXAMINATION: VITAL SIGNS: Temperature 98.1, respiratory rate 20, pulse 72, blood pressure 156/92, O2 saturation 99%. GENERAL: The patient is a well-developed, well-nourished female in no acute distress. HEENT: Head is normocephalic, atraumatic. Pupils are round, reacting, accommodating to light. Sclerae are anicteric. Oral cavity is clear. Airway is patent. NECK: Supple. No JVD. LUNGS: Breath sounds present bilaterally. Nonlabored breathing pattern. HEART: Regular rate and rhythm. No murmurs. ABDOMEN: Soft, epigastric pain, very tender to deep palpation without peritonitis or rebound tenderness. No surgical scars or hernias. Normal bowel sounds. BACK: No thoracic or lumbar or CVA tenderness. EXTREMITIES: No clubbing, cyanosis or edema. NEUROLOGIC: The patient is alert and oriented x 3. Mood, judgment, and insight are intact. Nonfocal peripheral exam. Cranial nerves 2-12 are grossly intact. LABORATORY VALUES: As in HPI. IMAGING: As in HPI. ASSESSMENT AND PLAN: The patient is a 57-year-old female with gallstone pancreatitis. I discussed gallstone pancreatitis with the patient including the diagnosis, management, prognosis and treatment options including a delayed cholecystectomy to reduce the risk of further complications of gallstones. I discussed laparoscopic cholecystectomy in detail with the patient, including the technical aspects of the procedure, the risks and benefits and alternatives and recovery. All questions were answered to her satisfaction. She is in agreement with the plan. We will continue supportive care and medical management for her pancreatitis ,and will plan for cholecystectomy later this week or possibly early next week, depending on how her pancreatitis progresses or resolves. We will follow along with the patient. Thank you very much for this consultation. MD KATTY Maldonado/chilo , 05:19 PM , 05:28 PM
[2018-05-04] MEDS: Sod Chloride 0.9% Inj 1,000 ML IV.CONT SCH ×2 (06:17→22:04)
[2018-05-04 07:30] LABS: Baso % (Auto) 0.5 % (0.0-2.0); Eos # (Auto) 0.1 th/mm3 (0.0-0.4); Eos % (Auto) 2.5 % (0.0-4.0); Hematocrit 37.5 % (35.0-46.0); Hemoglobin 12.9 gm/dL (11.6-15.3); Lymph # (Auto) 2.5 th/mm3 (1.0-4.8); Lymph % (Auto) 43.1 % (9.0-44.0); Mean Corpuscular HGB Conc 34.3 % (32.0-36.0); Mean Corpuscular Hemoglobin 31.3 pg (27.0-34.0); Mean Corpuscular Volume 91.1 fL (80.0-100.0); Mean Platelet Volume 10.6 fL (7.0-11.0); Mono # (Auto) 0.6 th/mm3 (0.0-0.9); Mono % (Auto) 9.9 % (0.0-8.0); Neut # (Auto) 2.6 th/mm3 (1.8-7.7); Platelet Count 186 th/mm3 (150-450); Red Blood Count 4.12 mil/mm3 (4.00-5.30); White Blood Count 5.9 th/mm3 (4.0-11.0)
[2018-05-04 07:53] LABS: Anion Gap 7 meq/L (5-15); Blood Urea Nitrogen 7 mg/dL (7-18); Calcium 9.6 mg/dL (8.5-10.1); Carbon Dioxide 24.3 meq/L (21.0-32.0); Chloride 109 meq/L (98-107); Glomerular Filtration Rate Greater Than 89 mL/min (>89); Glucose,Random 115 mg/dL (74-106); Lipase 208 U/L (73-393); Sodium 140 meq/L (136-145)
--- NOTE | 2018-05-04 10:16 | ECG ---
Date Performed: 05/03/2018 Time Performed: 09:22:22 PTAGE: 57 years EKG: Sinus rhythm WITH FIRST DEGREE AV BLOCK ABNORMAL ECG NO PREVIOUS TRACING DOCTOR: Brock Jones Interpretating Date/Time 05/04/2018 10:14:55
--- NOTE | 2018-05-04 13:25 | P.PNGI ---
Subjective Interval history: Patient resting comfortably in bed No reported discomfort at this time, denies nausea or vomiting Surgery following Lipase normalized Physical Exam Vital signs: Vital Signs 05/03/18 14:45 05/03/18 20:00 05/03/18 21:40 Temperature 98.4 F 97.8 F Pulse Rate 63 60 Respiratory Rate 20 18 16 Blood Pressure 166/75 H 122/73 Pulse Oximetry 97 97 05/04/18 00:00 05/04/18 04:00 05/04/18 08:00 Temperature 97.8 F 98.1 F 97.7 F Pulse Rate 61 67 57 L Respiratory Rate 17 17 16 Blood Pressure 133/66 140/87 146/70 H Pulse Oximetry 97 97 96 05/04/18 12:00 Temperature 97.7 F Pulse Rate 61 Respiratory Rate 20 Blood Pressure 116/56 L Pulse Oximetry 96 Intake & Output 05/03/18 05/04/18 05/04/18 18:59 06:59 18:59 Intake Total 1000 / 1000 500 / 500 Balance 1000 / 1000 500 / 500 Weight 101.9 kg Intake: IV 1000 / 1000 500 / 500 NS Inj 1,000 ML @ 84 mls/hr IV. 500 / 500 CONT .[id number] YADIEL Rx#:[id number] NS Inj 1,000 ML @ Wide Open IV. 1000 / 1000 SIG BOLUS ONE Rx#:[id number] Oral 0 / 0 Other: # Voids 1 3 2 Date of Last Bowel Movement 05/03/18 Weight On Admission 101.9 kg - Constitutional no acute distress - Routine HEENT Exam Head: Present: normocephalic - Routine Respiratory Exam Present: CTA bilaterally. Absent: accessory muscle use - Routine Cardiovascular Exam Present: RRR, S1, S2 - Routine Abdominal Exam Present: soft, normoactive bowel sounds. Absent: tenderness, distended, guarding, firm - Routine Extremities Exam Absent: edema - Routine Skin Exam Present: dry, warm - Routine Neurological Exam Present: alert, oriented X3 Results - Labs CBC & Chem 7: 05/04/18 06:22 05/04/18 06:22 Laboratory Results - last 24 hr 05/03/18 05/04/18 05/04/18 08:45 06:22 06:22 WBC 5.9 RBC 4.12 Hgb 12.9 Hct 37.5 MCV 91.1 MCH 31.3 MCHC 34.3 RDW 13.0 Plt Count 186 MPV 10.6 Neut % (Auto) 44.0 Lymph % (Auto) 43.1 [place] % (Auto) 9.9 H Eos % (Auto) 2.5 Baso % (Auto) 0.5 Neut # (Auto) 2.6 Lymph # (Auto) 2.5 [place] # (Auto) 0.6 Eos # (Auto) 0.1 Baso # (Auto) 0.0 WBC Differential . Differential Comment Auto diff final Sodium 140 Potassium 4.0 Chloride 109 H Carbon Dioxide 24.3 Anion Gap 7 BUN 7 Creatinine 0.58 Estimated GFR Greater than 89 Random Glucose 115 H Calcium 9.6 Triglycerides 194 H Cholesterol 243 H LDL Cholesterol, Calc 179 H HDL Cholesterol 25.7 L Cholesterol/HDL Ratio 9.45 Lipase 208 Assessment and Plan - Plan Assessment Acute pancreatitispatient presents with 2-day history of abdominal pain, located in her upper mid abdomen, worse after meals. States that she did have some mild short-term improvement with Maalox. Associated nausea with no emesis. Bowel movements are regular. Denies any history of pancreatitis. Denies any alcohol use. Denies any hyperlipidemia. Denies any abdominal trauma. Denies any new medications. Denies any family history of pancreatic issues including cancer. Does have known history of gallstones but has never had a cholecystectomy. CT abdomen/pelvis with IV contrast (05/03/18) there is the suggestion of minimal stranding along the pancreatic head which can be seen with pancreatitis. Diverticulosis without diverticulitis. Multiple gallstones and possible calcification of the gallbladder wall. Multiple uterine masses most consistent with leiomyomas. [id number] LFTs not concerning for any signs of obstruction 05/04/2018 Acute pancreatitis Patient denies abdominal pain nausea or vomiting upon evaluation CT abdomen and pelvis as noted above General surgery following -WBC 5.9 hemoglobin 12.9 hematocrit 37.5 -Lipase 208 -(05/03/18) total bilirubin 0.2 AST 19 ALT 23 alk phos 99 Triglycerides 194 cholesterol 243 LDL 179 HDL 25.7 cholesterol/HDL ratio 9.45 Plan -We will advance to clear liquid diet, then full liq for dinner -As per general surgery, possible laparoscopic cholecystectomy this week -Continue to monitor labs-lipase -Analgesics and antiemetics as per attending -IV hydration -Supportive care -GI will sign off at this time, please notify if any of further assistance needed This patient has been seen by myself and Dr. Martinez and this note is written on his behalf - Attending Attestation Dr. Martinez
[2018-05-04] MEDS: Morphine Inj 4 MG/ML Vial IV.PUSH PRN (13:57)
--- NOTE | 2018-05-04 16:17 | P.PNGS ---
Subjective Interval history: Resting in bed No issues overnight Pain improving Physical Exam Vital signs: Vital Signs 05/03/18 20:00 05/03/18 21:40 05/04/18 00:00 Temperature 97.8 F 97.8 F Pulse Rate 60 61 Respiratory Rate 18 16 17 Blood Pressure 122/73 133/66 Pulse Oximetry 97 97 05/04/18 04:00 05/04/18 08:00 05/04/18 12:00 Temperature 98.1 F 97.7 F 97.7 F Pulse Rate 67 57 L 61 Respiratory Rate 17 16 20 Blood Pressure 140/87 146/70 H 116/56 L Pulse Oximetry 97 96 96 05/04/18 16:00 Temperature 97.9 F Pulse Rate 69 Respiratory Rate 20 Blood Pressure 109/59 L Pulse Oximetry 98 Intake & Output 05/03/18 05/04/18 05/04/18 18:59 06:59 18:59 Intake Total 1000 / 1000 500 / 500 Balance 1000 / 1000 500 / 500 Weight 101.9 kg Intake: IV 1000 / 1000 500 / 500 NS Inj 1,000 ML @ 84 mls/hr IV. 500 / 500 CONT .[id number] [facility] Rx#:[id number] NS Inj 1,000 ML @ Wide Open IV. 1000 / 1000 SIG BOLUS ONE Rx#:[id number] Oral 0 / 0 Other: # Voids 1 3 2 Date of Last Bowel Movement 05/03/18 Weight On Admission 101.9 kg Narrative: Alert and awake Abd: soft; nondistended; LUQ and epigastric tenderness to palpation Results - Labs 05/04/18 06:22 05/04/18 06:22 Laboratory Results - last 24 hr 05/04/18 05/04/18 06:22 06:22 WBC 5.9 RBC 4.12 Hgb 12.9 Hct 37.5 MCV 91.1 MCH 31.3 MCHC 34.3 RDW 13.0 Plt Count 186 MPV 10.6 Neut % (Auto) 44.0 Lymph % (Auto) 43.1 [place] % (Auto) 9.9 H Eos % (Auto) 2.5 Baso % (Auto) 0.5 Neut # (Auto) 2.6 Lymph # (Auto) 2.5 [place] # (Auto) 0.6 Eos # (Auto) 0.1 Baso # (Auto) 0.0 WBC Differential . Differential Comment Auto diff final Sodium 140 Potassium 4.0 Chloride 109 H Carbon Dioxide 24.3 Anion Gap 7 BUN 7 Creatinine 0.58 Estimated GFR Greater than 89 Random Glucose 115 H Calcium 9.6 Lipase 208 - Imaging Imaging: ITS Impressions Abdomen/Pelvis CT 05/03/18 08:35 CONCLUSION: 1. There is the suggestion of minimal stranding along the pancreatic head which can be seen with pancreatitis in the right clinical setting. Correlation with amylase/lipase levels. 2. Diverticulosis without diverticulitis. 3. Multiple gallstones and possible calcification gallbladder wall. 4. Multiple uterine masses most consistent with leiomyomas. Assessment and Plan - Assessment (1) Gallstone pancreatitis Code(s): K85.10 - Biliary acute pancreatitis without necrosis or infection Status: Acute Plan: 57 year old female with gallstone pancreatitis -Lipase improved today -Recheck labs tomorrow -If labs remain stable and pain resolved will plan for laparoscopic cholecystectomy on Wednesday -Will follow up tomorrow - Attending Attestation The exam, history, and the medical decision-making described in the above note were completed with the assistance of the mid-level provider. I reviewed and agree with the findings presented. I attest that I had a [id number] encounter with the patient on the same day, and personally performed and documented my assessment and findings in the medical record. GS pancreatitis, slowly improving possibly surgery Wednesday
--- NOTE | 2018-05-04 19:41 | P.PNIM ---
Subjective Interval history: 57-year-old female with severe abdominal pain found to have acute pancreatitis with gallstones Patient seen and examined earlier today, states that her pain is a little better still moderate epigastric pain and distention, denies shortness of breath or fever, no nausea vomiting, states she is hungry, apparently surgery for cholecystectomy scheduled for later this week. Physical Exam Vital signs: Last Vital Signs Temp 97.9 F 05/04/18 16:00 Pulse 69 05/04/18 16:00 Resp 20 05/04/18 16:00 BP 109/59 L 05/04/18 16:00 Pulse Ox 98 05/04/18 16:00 Intake & Output 05/02/18 05/03/18 05/04/18 05/05/18 06:59 06:59 06:59 06:59 Intake Total 1500 / 1500 480 / 480 Balance 1500 / 1500 480 / 480 Weight 101.9 kg Well-developed well-nourished 57-year-old -[place] female Very pleasant awake alert oriented no acute distress Heart S1-S2 regular Lungs clear no wheeze no rhonchi Abdomen soft obese moderate epigastric tenderness to palpation no significant guarding rebound or rigidity positive bowel sounds Extremities no clubbing cyanosis no edema Results Labs CBC & Chem 7: 05/04/18 06:22 05/04/18 06:22 Assessment and Plan (1) Gallstone pancreatitis: Code(s): K85.10 - Biliary acute pancreatitis without necrosis or infection Status: Acute Plan ACUTE PANCREATITIS due to cholelithiasis, no evidence of choledocholithiasis, lipase 581> 208, normal LFTs, continue pain control supportive care hydration, and laparoscopic cholecystectomy planned per surgery TOBACCO USE/nicotine addiction - nicoderdawn, counseled to dc smokeing for 3 min, start nicoderm MORBID OBESITY bmi 40outpatient diet activity on follow-up DYSLIPIDEMIATC 243, LDL 179, TG 194, outpatient follow-up dietary/lifestyle modifications hold statin for now DVT prophylaxissubcu heparin, hold when preop Disposition: Home postop without any needs anticipated pending clinical course Progress Note: Quality VTE Deep Vein Thrombosis/Pulmonary Embolism Present on Admission: No
[2018-05-04] MEDS: Heparin - SQ 10,000 UNITS/ML Vial SQ SCH (22:04)
[2018-05-05] MEDS: Sod Chloride 0.9% Inj 1,000 ML IV.CONT SCH ×2 (05:07→11:07)
[2018-05-05] MEDS: Heparin - SQ 10,000 UNITS/ML Vial SQ SCH (08:36)
--- NOTE | 2018-05-05 15:21 | P.PNGS ---
Subjective Interval history: Pain resolved Physical Exam Vital signs: Vital Signs 05/04/18 16:00 05/04/18 20:00 05/05/18 00:00 Temperature 97.9 F 97.3 F L 98.3 F Pulse Rate 69 75 64 Respiratory Rate 19 Blood Pressure 109/59 L 111/53 L 129/58 L Pulse Oximetry 98 97 100 05/05/18 04:00 05/05/18 05:10 05/05/18 07:30 Temperature 98.1 F 97.5 F L Pulse Rate 67 67 Respiratory Rate 20 16 20 Blood Pressure 124/79 130/63 Pulse Oximetry 98 96 05/05/18 11:45 Temperature 97.9 F Pulse Rate 65 Respiratory Rate 20 Blood Pressure 147/67 H Pulse Oximetry 98 Intake & Output 05/04/18 05/05/18 05/05/18 18:59 06:59 18:59 Intake Total 480 / 480 600 / 600 Balance 480 / 480 600 / 600 Intake: Oral 480 / 480 600 / 600 Other: # Voids 4 4 1 Date of Last Bowel Movement 05/05/18 Narrative: Alert and awake Abd: soft non tender non distended Results - Labs 05/04/18 06:22 05/04/18 06:22 Laboratory Results - last 24 hr 05/05/18 06:22 Lipase 190 - Imaging Imaging: ITS Impressions Abdomen/Pelvis CT 05/03/18 08:35 CONCLUSION: 1. There is the suggestion of minimal stranding along the pancreatic head which can be seen with pancreatitis in the right clinical setting. Correlation with amylase/lipase levels. 2. Diverticulosis without diverticulitis. 3. Multiple gallstones and possible calcification gallbladder wall. 4. Multiple uterine masses most consistent with leiomyomas. Assessment and Plan - Assessment (1) Gallstone pancreatitis Code(s): K85.10 - Biliary acute pancreatitis without necrosis or infection Status: Acute Plan: 57 year old female with gallstone pancreatitis -Lipase improved today -Pain resolved -Plan for lap kuldeep; possible open; possible IOC tomorrow -Procedure explained including risks and benefits -Obtain consents -NPO after MN - Attending Attestation The exam, history, and the medical decision-making described in the above note were completed with the assistance of the mid-level provider. I reviewed and agree with the findings presented. I attest that I had a [id number] encounter with the patient on the same day, and personally performed and documented my assessment and findings in the medical record. GS pancreatitis, improving on exam will need lap kuldeep once resolved
--- NOTE | 2018-05-05 21:46 | P.PNIM ---
Subjective Interval history: 57-year-old female admitted with gallstone pancreatitis pt seen and examined earlier today, denies sob, states abd pain much better, no fever, no nv Physical Exam Vital signs: Last Vital Signs Temp 98.4 F 05/05/18 20:00 Pulse 74 05/05/18 20:00 Resp 20 05/05/18 20:00 BP 123/62 05/05/18 20:00 Pulse Ox 96 05/05/18 20:00 Intake & Output 05/03/18 05/04/18 05/05/18 05/06/18 06:59 06:59 06:59 06:59 Intake Total 1500 / 1500 1080 / 1080 Output Total 600 / 600 Balance 1500 / 1500 1080 / 1080 -600 / -600 Weight 101.9 kg wdobese 57 yo aaf aaox3 nad heart s1s2 reg lungs clear no wrr abd obese soft nondt pos bs less tender ext no edema no calf tenderness Results Labs CBC & Chem 7: 05/04/18 06:22 05/04/18 06:22 Assessment and Plan (1) Gallstone pancreatitis: Code(s): K85.10 - Biliary acute pancreatitis without necrosis or infection Status: Acute Plan ACUTE PANCREATITIS due to cholelithiasis, no evidence of choledocholithiasis, lipase 581> 208, normal LFTs, continue pain control supportive care hydration, and laparoscopic cholecystectomy in am TOBACCO USE/nicotine addiction - nicoderm, counseled to dc smokeing for 3 min, start nicoderm MORBID OBESITY bmi 40outpatient diet activity on follow-up DYSLIPIDEMIATC 243, LDL 179, TG 194, outpatient follow-up dietary/lifestyle modifications hold statin for now DVT prophylaxissubcu heparin, hold when preop Disposition: Home postop without any needs anticipated pending clinical course Progress Note: Quality VTE Deep Vein Thrombosis/Pulmonary Embolism Present on Admission: No
[2018-05-05] MEDS ORDERED: Metoprolol Tartrate 25 MG Tablet PO SCH (23:21)
[2018-05-05] MEDS ORDERED: Chlorhexidine Gluconate 2% 1 Pack (2 Cloths) TOPICAL ONE (23:21)
[2018-05-05] MEDS ORDERED: Sodium Chlor 0.9% Inj 500 ML IV.SIG SCH (23:45)
[2018-05-06] MEDS: Sod Chloride 0.9% Inj 1,000 ML IV.CONT SCH ×2 (01:44→21:41)
[2018-05-06] MEDS: Morphine Inj 4 MG/ML Vial IV.PUSH PRN (02:42)
[2018-05-06] MEDS ORDERED: Bupivacaine/Epinephrine Inj 0.25% 50 ML Vial ONE (12:46)
[2018-05-06] MEDS ORDERED: *morphine SULFATE 10 MG/ML PERIprocedure ONLY ONE (15:04)
[2018-05-06] MEDS ORDERED: fentaNYL Citrate Inj 100 MCG/2 ML Ampul ONE (15:08)
--- NOTE | 2018-05-06 15:31 | MP ---
cc: Aaron Bermudez MD DATE OF OPERATION: 05/06/2018 PREOPERATIVE DIAGNOSIS: Gallstone pancreatitis. POSTOPERATIVE DIAGNOSIS: Gallstone pancreatitis. PROCEDURE PERFORMED: Laparoscopic cholecystectomy. ANESTHESIA: General. ATTENDING SURGEON: Dr. Bermudez. TEST DESK SUPERVISOR: Staff. ESTIMATED BLOOD LOSS: Less than 10 mL COMPLICATIONS: None. FINDINGS: Mildly chronically inflamed gallbladder filled with gallstones with no other intra-abdominal pathology. INDICATIONS FOR PROCEDURE: The patient is a 57-year-old female who was admitted to [facility] with gallstone pancreatitis. The patient was treated for pancreatitis and this resolved. Before discharge, the patient was recommended to undergo laparoscopic cholecystectomy for prevention of further gallstone pancreatitis. Risks, benefits, and alternatives of the surgery were discussed with the patient prior to the procedure, and she agreed to undergo the procedure. DESCRIPTION OF PROCEDURE: Informed consent was obtained. The patient was taken to the operating room and placed in the supine position and placed under general endotracheal anesthesia. The patient's abdomen was prepped and draped in a sterile fashion. Timeout was performed. The abdomen was entered with an Optiview technique. A 5 mm camera was placed just to the right of the umbilicus and we entered through the fascia under direct visualization. We entered the abdominal cavity under direct visualization and insufflated the abdomen. We placed a 5 mm 30-degree camera into the abdomen after insufflation and surveyed the abdomen. There is no evidence of any complication from our entry. We then placed a 10 mm trocar in the subxiphoid position and two 5 mm trocars in the right upper quadrant. Local anesthetic was used at all port sites. We were then able to identify the gallbladder and retract it upward. I exposed the gallbladder which had some chronic inflammation, full of gallstones without any acute inflammation of note. The liver appeared normal and there is no other abnormal findings on diagnostic laparoscopy. We then used the hook electrocautery as well as a [place] dissector to dissect out the infundibulum of the gallbladder down to the triangle of Calot. The critical view of safety was obtained. We doubly clipped the cystic duct proximal and doubly clipped the duct distal and divided this with EndoShears. We then put 2 clips on the cystic artery proximal and divided this with cautery. We used the hook with cautery to take the gallbladder off the gallbladder fossa without difficulty. The gallbladder was removed from the abdomen with EndoCatch bag through the subxiphoid port. We removed all the ports under vision of laparoscope and a suppressed pneumoperitoneum after we had confirmed that there was no evidence of any bleeding or bile leak from her gallbladder bed and from the triangle of Calot. We had no spillage of bile and no irrigation was performed. We then sutured the 10 mm subxiphoid port at the fascia with a running 0-Vicryl suture. We closed the skin with 4-0 Monocryl and Dermabond. The patient was discontinued from anesthesia and taken to the PACU in stable condition. The patient tolerated the procedure well and there were no apparent complications. All counts were correct and I was present and scrubbed for the entire procedure. Aaron Bermudez MD AWG/willie , 03:01 PM , 03:08 PM
[2018-05-06 15:57] VITALS: RESP 20
--- NOTE | 2018-05-06 19:45 | P.PNIM ---
Subjective Interval history: 57-year-old female admitted with gallstone pancreatitis, s/p lap cholecystectomy today pt seen and examined doing fair, no co nv cp Physical Exam Vital signs: Last Vital Signs Temp 97.4 F L 05/06/18 15:30 Pulse 64 05/06/18 15:30 Resp 20 05/06/18 15:30 BP 132/71 05/06/18 15:30 Pulse Ox 100 05/06/18 15:35 Intake & Output 05/04/18 05/05/18 05/06/18 05/07/18 06:59 06:59 06:59 06:59 Intake Total 1500 / 1500 1080 / 1080 2100 / 2100 Output Total 600 / 600 5 / 5 Balance 1500 / 1500 1080 / 1080 -600 / -600 5 / 209 Weight 101.9 kg wdwn 57yo aaf sleepy, no distress heart s1s2 reg lungs clear no wrr abd post op ext no edema Results Labs CBC & Chem 7: 05/04/18 06:22 05/04/18 06:22 Assessment and Plan (1) Gallstone pancreatitis: Code(s): K85.10 - Biliary acute pancreatitis without necrosis or infection Status: Acute Plan ACUTE PANCREATITIS due to chronic cholecystitis and cholelithiasis, post lap choly - pain control, advance diet as per sx TOBACCO USE/nicotine addiction - nicoderm, counseled to dc smokeing for 3 min, start nicoderm MORBID OBESITY bmi 40outpatient diet activity on follow-up DYSLIPIDEMIATC 243, LDL 179, TG 194, outpatient follow-up dietary/lifestyle modifications hold statin for now DVT prophylaxissubcu heparin, hold when preop Disposition: Home postop without any needs anticipated pending clinical course Progress Note: Quality VTE Deep Vein Thrombosis/Pulmonary Embolism Present on Admission: No
[2018-05-07] MEDS: Sod Chloride 0.9% Inj 1,000 ML IV.CONT SCH (02:33)
[2018-05-07 08:55] VITALS: BP 106/67; PULSE 64; TEMP 98.9; O2SAT 97
--- NOTE | 2018-05-07 10:22 | P.PNGS ---
Subjective Patient reports: no new complaints, feels better Physical Exam Vital signs: Vital Signs 05/06/18 11:54 05/06/18 15:00 05/06/18 15:15 Temperature 98.0 F 98.3 F Pulse Rate 72 74 64 Respiratory Rate 18 12 16 Blood Pressure 145/70 H 136/63 116/59 L Pulse Oximetry 95 98 97 05/06/18 15:30 05/06/18 15:35 05/06/18 20:00 Temperature 97.4 F L 98 F Pulse Rate 64 66 Respiratory Rate 20 20 Blood Pressure 132/71 132/61 Pulse Oximetry 100 100 97 05/07/18 00:00 05/07/18 04:00 05/07/18 08:00 Temperature 98.6 F 97.7 F 98.9 F Pulse Rate 87 68 64 Respiratory Rate 20 20 20 Blood Pressure 113/74 125/82 106/67 Pulse Oximetry 96 94 L 97 Intake & Output 05/06/18 05/07/18 05/07/18 18:59 06:59 18:59 Intake Total 2100 / 2100 400 / 400 Output Total 5 / 5 0 / 0 Balance 2095 / 2095 400 / 400 Intake: IV 1100 / 1100 LR 1000 mL Inj 1,000 ML @ 30 1000 / 1000 mls/hr IV.SIG .Q24H YADIEL Rx#: [id number] Ancef Inj 2,000 MG In NS Inj 100 / 100 100 ML @ 200 mls/hr IV.SIG NONPROFIT FUNDRAISER YADIEL Rx#:[id number] Oral 400 / 400 Anesthesia Amount 1000 / 1000 Output: Urine 0 / 0 Estimated Blood Loss 5 / 5 Other: # Voids 1 Date of Last Bowel Movement 05/05/18 05/05/18 - Routine Abdominal Exam Present: soft (incisional tenderness) Results - Labs 05/04/18 06:22 05/04/18 06:22 - Imaging Imaging: ITS Impressions Abdomen/Pelvis CT 05/03/18 08:35 CONCLUSION: 1. There is the suggestion of minimal stranding along the pancreatic head which can be seen with pancreatitis in the right clinical setting. Correlation with amylase/lipase levels. 2. Diverticulosis without diverticulitis. 3. Multiple gallstones and possible calcification gallbladder wall. 4. Multiple uterine masses most consistent with leiomyomas. Assessment and Plan - Assessment (1) Gallstone pancreatitis Code(s): K85.10 - Biliary acute pancreatitis without necrosis or infection Status: Acute Plan: 57 year old female with gallstone pancreatitis s/p lap kuldeep doing well plan cardio diet oob po pain control dc ivf d/c home today f/u [address] Bermudez
--- NOTE | 2018-05-07 10:57 | P.DS ---
DS: Providers Date of admission: 05/03/18 11:51 Primary care physician: UNKNOWN Consults: 05/03/18 11:57 Consult to Gastroenterology Routine Consulting Provider: Migue Madsen Reason for Consultation: gallstone pancreatitis Notified:: Service Spoke with:: Sonia Notified:: 05/03/18 Time Notified:: 12:00 Ordering Provider: IVETTE 05/03/18 11:59 Consult to General Surgery Routine Consulting Provider: Aaron Bermudez Reason for Consultation: gallstone pancreatitis Notified:: Service Spoke with:: Sonia Date Notified:: 05/03/18 Time Notified:: 12:02 Ordering Provider: IVETTE DS: Diagnosis Discharge Diagnosis (1) Gallstone pancreatitis: Status: Acute DS: Summary 57-year-old female admitted with acute severe intractable abdominal pain found to have acute pancreatitis and evidence of cholelithiasis with no evidence of biliary obstruction or choledocholithiasis. Patient was suspected of having gallstone pancreatitis and was seen in consultation by gastroenterology and general surgery. Patient was made p.o. and taken to the operating room after time for resolution of the pancreatitis. Her LFTs were not elevated and lipase improved, her pain symptoms resolved and she underwent a uncomplicated laparoscopic cholecystectomy with findings of chronic cholecystitis. Patient was advanced on a diet and tolerated this well, and was otherwise stable for discharge home and outpatient follow-up, she was instructed on activity restrictions wound care diet, tobacco cessation and outpatient follow-up medication compliance. Time spent discussing smoking cessation with patient: 3 to 10 minutes Time Spent with Patient Total time spent providing and/or coordinating discharge services: Greater than 30 minutes Status at Discharge Functional status at discharge: independent ambulation Overall status at discharge: patient is progressing back to baseline Quality: VTE Deep Vein Thrombosis/Pulmonary Embolism Present on Admission: No Exam Narrative Exam Narrative: Well-developed well-nourished obese 57-year-old - [place] female Awake alert oriented pleasant no acute distress Heart S1-S2 regular Lungs clear bilateral no wheeze no rhonchi Abdomen soft obese non-distended, postoperative, incisions intact, extremities no clubbing cyanosis no HENMT Head: normocephalic and atraumatic Nose: no nasal discharge and no epistaxis Mouth: moist mucous membranes Eyes Sclera: normal sclerae Pupils: PERRL Neck Neck: trachea midline and no JVD Resp Effort & Inspection: no use of accessory muscles Auscultation: clear to auscultation bilaterally Cardio Rate: regular rate Rhythm: regular rhythm Heart Sounds: no murmurs GI Inspection: non-distended Palpation: soft, no hepatosplenomegaly and nontender Skin General: dry skin (warm) Neuro General: alert and awake Cranial Nerves: other Speech: speech normal Motor: no movement abnormalities noted Extrem General: normal to inspection, no clubbing, no cyanosis and no edema Psych Mood: congruent mood Affect: normal affect Judgment: judgment good Results Pending studies at discharge: Pending at discharge 05/06/18 Surgical [PTH] Routine Impressions ITS Impressions Abdomen/Pelvis CT 05/03/18 08:35 CONCLUSION: 1. There is the suggestion of minimal stranding along the pancreatic head which can be seen with pancreatitis in the right clinical setting. Correlation with amylase/lipase levels. 2. Diverticulosis without diverticulitis. 3. Multiple gallstones and possible calcification gallbladder wall. 4. Multiple uterine masses most consistent with leiomyomas. Discharge Plan Discharge Disposition Patient Disposition: Discharge Home Discharge Condition Condition: Stable Discharge Order Discharge Orders: Discharge Order (Routine); Ordered 05/07/18 Ordered By: Sophy Grier Physicians Team Primary Care Provider: UNKNOWN, Attending Provider: Sophy Grier Other Providers: Migue Madsen ; Aaron Bermudez Rxs /Orders / Referrals /Forms Prescriptions: New hydrocodone-acetaminophen 5-325 mg Tablet 1 tab PO Q4H PRN (Reason: Pain Scale 1 To 5) Qty: 12 RF: 0 nicotine 7 mg/24 hr Patch 24 Hour 1 patch Transdermal DAILY Qty: 15 RF: 0 No Action No Known Home Medications RF: 0 Referrals: Aaron Bermudez MD [Physician] - See Instructions (cardiac diet ok to shower no bath tub f/u 1 week) UNKNOWN, [Primary Care Provider] - See Instructions (PLEASE CALL Real Time Translation TO SCHEDULE APPT. [address] [facility] [id number] ) Discharge Instructions Patient Printed Instructions: Gallstones (GEN), Laparoscopic Cholecystectomy ( DC) Status ED Status: Left Department Discharge Information Discharge Date/Time: 05/07/18 11:24
== END 2018-05-07 11:24 | disposition home or self-care (01) | DRG 418 ==
LOC: NEPE 07:05 → NEDA 11:51 → N05 14:44
PROVIDERS: ADMIT Internal Medicine; ATTEND Internal Medicine
CPT/HCPCS: 74177; 76937; 80048; 80053; 80061; 81001; 83690; 83735; 84484; 85025; 88304; 90761; 90774; 90775; 90784; 93005; 94150; 96361; 96374; 96375; 99285; C8952; J0131; J0690; J1644; J2250; J2270; J2405; J3010; J7030; J7120; Q9967